=== PATIENT | female | born 1955 | race Caucasian/White ===

== ENCOUNTER 2016-09-02 19:44 | Emergency (ER) | payer MEDICARE, MEDICAID ==
[2016-09-02] MEDS ORDERED: IOPAMIDOL 370 (76%) 100 ML VIAL IV ONE (19:45)
[2016-09-02] MEDS ORDERED: FAMOTIDINE 10 MG/ML 2ML VIAL ONE (20:21)
[2016-09-02] MEDS ORDERED: MAALOX/LIDO2%VISC/SIMETHICONE 40 ML BOT ONE (20:21)
[2016-09-02 20:37] LABS: ABSOLUTE NEUTROPHIL COUNT 3.8 K/mm3 (1.8-7.7); BASO # 0.1 K/mm3 (0.0-0.2); BASO % 0.8 % (0.2-1.0); EOS # 0.4 (0.0-0.5); EOS % 4.4 % (0.9-2.9); HEMATOCRIT 38.6 % (37.0-47.0); HEMOGLOBIN 12.5 gm/l (12.0-16.0); IMM NEUT% 0.2 % (0-1); LYMPH # 3.6 (1.0-4.8); LYMPH % 39.7 % (15-45); MEAN CORPUSCULAR HEMOGLOBIN 29.5 pg (27.0-31.0); MEAN CORPUSCULAR HGB CONC 32.4 g/dl (33.0-37.0); MEAN PLATELET VOLUME 9.9 fl (7.4-10.4); MONO # 1.2 (0.0-0.8); MONO % 12.9 % (4-12); PLATELET COUNT 260 K/mm3 (130-400); RED CELL DISTRIBUTION WIDTH 13.8 % (11.5-14.5)
[2016-09-02 20:46] LABS: ALB/GLOB RATIO 1.3 (>1.0); CALCIUM 9.7 mg/dL (8.6-10.3)
[2016-09-02 20:50] LABS: TROPONIN I < 0.01 ng/ml (0.0-0.06)
[2016-09-02 20:54] LABS: CKMB ISOENZYME 2.5 ng/ml (0.6-6.3)
--- NOTE | 2016-09-02 21:05 | RAD ---
CHEST 2 VIEWS HISTORY: Chest pain. Frontal and lateral chest radiographs dated 09/02/2016. COMPARISON: 03/11/2016. FINDINGS: LUNG VOLUMES: Hyperinflation. FOCAL AIRSPACE OPACITY: No gross airspace consolidation. PLEURAL EFFUSION: None. CARDIOMEDIASTINAL SILHOUETTE: Nonenlarged. PNEUMOTHORAX: None identified. OSSEOUS STRUCTURES: No grossly destructive lesions. IMPRESSION: Hyperinflation, correlate for obstructive pulmonary disease. No acute cardiopulmonary process noted.
[2016-09-02 22:49] LABS: URINE BILIRUBIN NEGATIVE (NEGATIVE); URINE BLOOD TRACE (NEGATIVE); URINE GLUCOSE (UA) NEGATIVE (NEGATIVE); URINE LEUKOCYTE ESTERASE NEGATIVE (NEGATIVE); URINE NITRITE NEGATIVE (NEGATIVE); URINE PROTEIN NEGATIVE (NEGATIVE); URINE UROBILINOGEN NORMAL (0-1 mg/dl)
[2016-09-02 22:52] LABS: URINE APPEARANCE SL CLOUDY; URINE COLOR YELLOW
[2016-09-02 22:59] LABS: URINE EPITHELIAL CELLS 0-1 /hpf
[2016-09-02 23:00] LABS: URINE BACTERIA FEW; URINE CRYSTALS 1-2 CA OXALATE /hpf
--- NOTE | 2016-09-03 08:32 | CT ---
CHEST CTA HISTORY: Chest pain and elevated d-dimer.. TECHNIQUE: Following the administration of 80 mL Isovue-370 intravenous contrast, contiguous axial images were acquired from the thoracic inlet to the diaphragmatic hiatus for CT pulmonary angiography. Three-dimensional rotational reformatted imaging of the pulmonary arterial tree was performed with maximum intensity projection technique on a dedicated workstation, and reviewed separately. FINDINGS: PULMONARY ARTERIAL TREE: Technically adequate enhancement: No dominant filling defects. THORACIC AORTA: Normal caliber. No evidence of dissection. LUNGS: No gross airspace abnormality. No pleural effusion. No pneumothorax. MICHELLE AND MEDIASTINUM: Small hiatal hernia. No grossly enlarged lymph nodes. AXILLAE: No grossly enlarged lymph nodes. MAMMARY SOFT TISSUES: Evidence of ruptured breast implants bilaterally. UPPER ABDOMEN:No gross mass effect. OSSEOUS STRUCTURES: Destructive lesions. Minimal sigmoid thoracic spine. IMPRESSION: 1. No CTA evidence of proximal order pulmonary embolus. No gross airspace disease or acute aortic pathology. 2. Small hiatal hernia. 3. Evidence of bilateral ruptured breast implants, likely long-standing. Preliminary report relayed to the Emergency Medicine medical service by Dr. Lopez on 09/02/2016 at 2326 hours.
== END 2016-09-03 00:38 | disposition home or self-care (01) ==
LOC: ED 19:44
DX: R07.9 Chest pain, unspecified (principal); I10 Essential (primary) hypertension; I50.9 Heart failure, unspecified; F17.210 Nicotine dependence, cigarettes, uncomplicated
CPT/HCPCS: 85379; 85025; 82550; 82553; 87086; 80053; 83735; 84484; 81001; 71020; 71275; 99284 ×2; 96374; 93005; A9270; Q9967

== ENCOUNTER 2016-09-30 20:14 | Emergency (ER) | payer MEDICARE, MEDICAID ==
[2016-09-30] MEDS ORDERED: LORAZEPAM 1 MG TABLET ONE (22:27)
== END 2016-09-30 22:45 | disposition home or self-care (01) ==
LOC: ED 20:14
DX: F41.8 Other specified anxiety disorders (principal); I50.9 Heart failure, unspecified; G35 Multiple sclerosis; I10 Essential (primary) hypertension; F17.210 Nicotine dependence, cigarettes, uncomplicated
CPT/HCPCS: 99283 ×2; 93005; A9270

== ENCOUNTER 2016-10-08 10:41 | Emergency (ER) | payer MEDICARE, OTHER ==
[2016-10-08] MEDS ORDERED: SODIUM CHLORIDE 0.9% 1,000 ML ONE (11:33)
[2016-10-08] MEDS ORDERED: DIPHENHYDRAMINE HCL 50 MG/1 ML VIAL ONE (11:34)
[2016-10-08] MEDS ORDERED: PREDNISONE 20 MG TABLET ONE (13:26)
[2016-10-08 13:49] LABS: ABSOLUTE NEUTROPHIL COUNT 5.3 K/mm3 (1.8-7.7); BASO # 0.1 K/mm3 (0.0-0.2); BASO % 0.7 % (0.2-1.0); EOS # 0.7 (0.0-0.5); EOS % 7.5 % (0.9-2.9); HEMATOCRIT 37.6 % (37.0-47.0); HEMOGLOBIN 12.1 gm/l (12.0-16.0); IMM NEUT% 0.2 % (0-1); LYMPH # 1.6 (1.0-4.8); LYMPH % 18.1 % (15-45); MEAN CELL VOLUME 93.1 fl (81.0-99.0); MEAN CORPUSCULAR HGB CONC 32.2 g/dl (33.0-37.0); MEAN PLATELET VOLUME 10.4 fl (7.4-10.4); MONO # 1.4 (0.0-0.8); MONO % 15.1 % (4-12); NEUT % 58.4 % (43-75); PLATELET COUNT 245 K/mm3 (130-400); RED CELL DISTRIBUTION WIDTH 13.9 % (11.5-14.5)
[2016-10-08 14:11] LABS: ALB/GLOB RATIO 1.2 (>1.0); CALCIUM 9.8 mg/dL (8.6-10.3)
== END 2016-10-08 16:21 | disposition home or self-care (01) ==
LOC: ED 10:41
DX: L29.9 Pruritus, unspecified (principal); I10 Essential (primary) hypertension; I50.9 Heart failure, unspecified; F17.210 Nicotine dependence, cigarettes, uncomplicated